=== PATIENT | male | born 1975 | race African-American/Black ===

== ENCOUNTER 2020-10-16 19:05 | Emergency (ER) | payer SELFPAY ==
[2020-10-16] MEDS ORDERED: Ketorolac Tromethamine 30 MG/ML VIAL ONE (21:12)
== END 2020-10-16 21:14 | disposition home or self-care (01) ==
LOC: ERS 19:05
DX: M54.2 Cervicalgia (principal); R51.9 Headache, unspecified; J45.909 Unspecified asthma, uncomplicated; F17.210 Nicotine dependence, cigarettes, uncomplicated
CPT/HCPCS: 96372; 99281; J1885